=== PATIENT | male | born 1960 | race Caucasian/White ===

== ENCOUNTER 2022-12-17 01:27 | Day surgery (SDC) | payer BC, SELFPAY ==
[2022-12-08 14:08] VITALS: BMI 33.2
--- NOTE | 2022-12-16 22:37 | PM.HPGS ---
History of Present Illness History of Present Illness Consent: Risks, benefits, and alternatives have been discussed and questions answered. Patient agrees to proceed with procedure. Chief complaint: hx colon polyps Narrative: Asif Olmos is a 62 year old male was referred for colon cancer screening. At some point in the past he has had polyps removed. His last colonoscopy was in 2018. Review of Systems Review of Systems: All systems reviewed & are unremarkable except as noted in HPI and below PMFSH Social History Social History Alcohol intake: current Substance use type: does not use Living arrangements: with family Spiritual care concerns: No Meds Home Medications and Allergies Home Medications Medication Instructions Recorded Confirmed Type atorvastatin 40 mg tablet 40 mg PO DAILY 12/08/22 12/17/22 History Allergies Allergy/AdvReac Type Severity Reaction Status Date / Time tetracycline Allergy Unknown Unknown Verified 12/17/22 09:12 Exam Resp: Auscultation: clear to auscultation bilaterally Cardio: Rate: regular rate Rhythm: regular rhythm GI: GI Palp: Yes Soft to palpation and No Tenderness to palpation present (GI) Assessment and Plan Assessment and plan (1) Colon cancer screening: Code(s): Z12.11 - Encounter for screening for malignant neoplasm of colon Status: Acute Assessment and Plan: Colonoscopy with possible biopsy or polypectomy or cautery or injection of substances.
[2022-12-17 09:14] VITALS: BP 160/89; PULSE 71; RESP 18; TEMP 36.4; O2SAT 97; BMI 32.5
[2022-12-17] MEDS: LACTATED RINGERS 1,000 ML 150 ML IV CONT (09:31)
--- NOTE | 2022-12-17 10:11 | P.PNAN_ITS ---
Anes - Initial Pre Proc Eval Procedure: Operation Date: 12/17/22 10:15 Proposed Procedures p Colonoscopy - Alfredo Ross MD Date/Time: 12/17/22 10:11 Surgeon: Alfredo Ross MD Pre Op Diagnosis: hx colon polyps Patient Data Age: 62 Gender: M Height: 1.75 m Weight: 100.2 kg Last Vital Signs Temp 97.6 F 12/17/22 09:14 Pulse 71 12/17/22 09:14 Resp 18 12/17/22 09:14 BP 160/89 H 12/17/22 09:14 Pulse Ox 97 12/17/22 09:14 O2 Del Method Room Air 12/17/22 09:14 Allergies Allergy/AdvReac Type Severity Reaction Status Date / Time tetracycline Allergy Unknown Unknown Verified 12/17/22 09:12 Home Medications Medication Instructions Recorded Confirmed Type atorvastatin 40 mg tablet 40 mg PO DAILY 12/08/22 12/17/22 History Patient hx anesthesia problems: none Family hx anesthesia problems: none Results Review: All pre-operative results and documents have been reviewed as part of the pre- operative evaluation. [facility] Social History Social History Alcohol intake: current Substance use type: does not use Living arrangements: with family Spiritual care concerns: No Anes - Eval Final PreProcedure Day of Procedure 12/17/22 10:11 Patient weight: obese Heart: regular rate and rhythm Lungs: clear to auscultation Airway: Mallampati scale class II Neurological: alert and oriented Last oral intake: >/= 8 hours ASA classification: II Emergent: no Anesthetic plan: proceed Anesthesia type and monitoring: general GIVS and standard monitoring Results Review: All pre-operative results and documents have been reviewed as part of the pre- operative evaluation. Informed Consent: The patient's anesthetic plan and its attendant risks and benefits were discussed with the patient/family/POA. Questions were solicited and answers provided to the satisfaction of the patient/family/POA.
[2022-12-17] MEDS: SIMETHICONE ORAL SUSPENSION 20 MG/0.3 ML 30 ML BOTTLE 0.6 ML IRRIGATION (10:52)
[2022-12-17 11:00] VITALS: BP 112/63; PULSE 55; RESP 17; O2SAT 94
[2022-12-17 11:10] VITALS: BP 111/68; PULSE 55; RESP 17; O2SAT 94
[2022-12-17 11:20] VITALS: BP 131/84; PULSE 58; RESP 25; O2SAT 97
== END 2022-12-17 11:28 | disposition home or self-care (01) ==
PROVIDERS: PCP Internal Medicine; Visit Provider Internal Medicine Gastroenterology
PROC: 0DJD8ZZ Inspection of Lower Intestinal Tract, Via Natural or Artificial Opening Endoscopic (ICD-10-PCS; CPT 45378; principal; 2022-12-17 10:15)
DX: Z12.11 Encounter for screening for malignant neoplasm of colon (principal); K57.30 Diverticulosis of large intestine without perforation or abscess without bleeding; Z86.010 Personal history of colon polyps; E66.9 Obesity, unspecified; Z68.32 Body mass index [BMI] 32.0-32.9, adult
CPT/HCPCS: 45378; J2704; J7120

== ENCOUNTER 2024-11-30 07:45 | Outpatient (CLI) | payer MEDICARE, SELFPAY ==
--- NOTE | ~2024-11-30 | US_ITS ---
EXAMINATION: US aorta [facility] DATE: 11/30/2024 8:55 CDT INDICATION: Screening for abdominal aortic aneurysm TECHNIQUE: Grayscale, color Doppler, and pulsed Doppler images of the aorta and common iliac arteries were obtained. COMPARISON: None. FINDINGS: The proximal aorta measures 2.9 cm greatest sagittal dimension. The mid aorta measures 2.5 cm greates t sagittal dimension. The distal aorta measures 2.3 cm greatest sagittal dimension. The right common internal iliac artery measures 1.5 cm. The left common iliac artery measures 1.8 cm. IMPRESSION: 1. Mild atherosclerotic changes without evidence for aneurysm. Reviewed, dictated and finalized at location A.
--- OUTSIDE RECORDS SUMMARY | 2024-11-30 07:50 | XMS_ITS | CONTINUITY OF CARE DOCUMENT ---
Author Name sulaiman hilario Address Unknown Organization [facility] Address [address] [place] [address] Phone [phone] Care Team Providers [employer] Name Role Phone sulaiman hilario Unavailable Unavailable RESULTS Date Observation Value Provider Reference Range Interpretation Location alanine aminotransferase (SGPT), serum 27 1/L Karlee Lozano RN aspartate aminotransferase (SGOT), serum 19 1/L Karlee Lozano RN creatinine, serum 1.3 mg/dL Karlee Lozano RN urea nitrogen, blood 11 mg/dL Karlee Lozano RN potassium, serum 4.6 mmol/L Karlee Loznao RN sodium, serum 140 mmol/L Karlee Lozano RN alanine aminotransferase (SGPT), serum 27 1/L Karlee Lozano RN aspartate aminotransferase (SGOT), serum 19 1/L Karlee Lozano RN creatinine, serum 1.3 mg/dL Karlee Lozano RN urea nitrogen, blood 11 mg/dL Karlee Lozano RN potassium, serum 4.6 mmol/L Karlee Lozano RN sodium, serum 140 mmol/L Karlee Lozano RN
--- OUTSIDE RECORDS SUMMARY | 2024-11-30 07:50 | XMS_ITS | Data Portability ---
Author Organization [place] [facility] [employer], Main Office Address [address] [place] [address] Assessment No assessment recorded. Plan of Treatment Reminders Order Date Submit Date Provider Last Modified By Organization Details Last Modified Time Details Appointments None recorded. Lab PSA, serum or plasma 2024 025 [facility], [address], [place], [address], 5 14:07:27 CBC w/ auto diff 2024 025 [id number] [facility], [address], [place], [address], 5 14:07:26 CMP, serum or plasma 2024 025 [email or web address] [facility], [address], [place], [address], 5 14:07:26 lipid panel, serum 2024 025 [email or web address] [facility], [place], [address], 5 14:07:27 TSH, serum or plasma 2024 025 [email or web address] [facility], [address], [place], [address], 5 14:07:27 lipid panel, serum 2023 024 [email or web address] Edsby [facility], [address], [place], [address], 4 09:59:48 lipid panel, serum 2022 023 [id number] [facility], [address], [place], [address], 16:32:01 CMP, serum or plasma 2022 023 [id number] [facility], [address], [place], [address], 16:32:01 PSA, serum or plasma 2022 023 [email or web address] [facility], [address], [place], [address], 16:32:01 Referral None recorded. Procedures None recorded. Surgeries None recorded. Imaging None recorded. Medication Orders baclofen 10 mg tablet 2022 023 [email or web address] [facility] [address], [address], [place], [address], 11:09:40 methylpredn isolone 4 mg tablets in a dose pack 2022 023 [email or web address] [facility] [address], [address], [place], [address], 11:09:43 Patient TargetsNo targets recorded. Patient Instructions Encounter Date Encounter Id Patient Instructions Last Modified By Organization Details Last Modified Time 12/02/2022 [id number] Lower thoracic upper lumbar back pain thought to be musculoskeletal. Will give a trial of a Medrol Dosepak along with some baclofen and see if any improvement. If none may need consider further diagnostic evaluation including possible MRI of the lumbar spine. Do not think a standard x-ray at this time would be of much benefit and at patient's age would demonstrate some degenerative changes. [email or web address] Not available 12/02/2022 10:39:22 04/21/2023 [id number] Follow-up essbhakti ial hypertension -hyperlipidemia -gout -obesity class one all clinically stable. Getting by with his salt reduction as well as changes in body habitus and doing well. No interval complaints of any new cardiovascular symptoms or other associated symptoms. Has had a colonoscopy just done in November for follow-up of colon polyps which was fine. Recent blood work back in October showed a cholesterol 177 HDL 40 and LDL 105. Will check blood work consisting of CMP, lipid, PSA. Overall is doing quite well. Follow-up in six months. Standard immunizations of RSV, COVID, influenza and shingles as recommended. Portions of the record may have been created with voice recognition software. Occasional wrong-word or s ound-a-like substitutions may have occurred due to the inherent limitations of voice recognition software. Read the chart carefully and recognize, using context, where substitutions have occurred. Do blood work after May 06 because of insurance reasons Next Appt: 6 Months Approximate Date: 10/18/2023 [email or web address] Not available 04/21/2023 11:26:38 10/27/2023 [id number] risk assessment* [email or web address] Not availabl e 10/27/2023 15:12:56 INFLUENZA VACCIN E Recommended today, but patient declined Ordered Pa idaliant will get at local pharmacy/health department Patient has egg allergy Next vaccination to be given fall Next vaccination to be given fall _2023__ TD/TDAP Patient will get at local pharmacy/health department PNEUMONIA VACCINE Recommended at age 64 SHINGLES Patient will get at local pharmacy/health department PSA No screening necessary patient is up to date COLORECTAL SCREENING No screening necessary patient is up to date DEPRESSION SCREENING Negative BMI Overweight try to lose 10% of your body weight NUTRITION Heart Healthy Diet Recommendation of a 1500 caloric intake for weight loss is advised Diabetic Diet Renal Diet DASH Diet Continue healthy eating & exercise Eat Heart Healthy Diet PHYSICAL ACTIVITY Need more exercise/physical activity ALCOHOL USE Occasional/Social Use TOBACCO USE non smoker LUNG CANCER SCREENING Non Smoker-not indicated SEXUALLY ACTIVE HEPATITIS C SCREENING Not indicated GLUCOSE SCREENING Ordered Not needed Known Diabetic up to date LIPID SCREENING Ordered Not needed Diagnosis of Hyperlipidemia up to date [email or web address] Not available 10/27/2023 14:53:12 Wellness evaluat ion risk assessment stable. Follow-up for essential hypertension, GERD, hyperlipidemia and obesity class one. Had recent blood work performed. Will check a lipid panel since he is on the atorvastatin. Otherwise appears to be doing well otherwise. Continue on current Rx and follow-up in six months. FDA recommendations of a influenza, RSV, COVID, pneumococcal immunizations strongly advised. Next Appointment: 6 Months Approximate Date: 04/24/2024 Portions of the record may have been created with voice recognition software. Occasional wrong-word or s ound-a-like substitutions may have occurred due to the inherent limitations of voice recognition software. Read the chart carefully and recognize, using context, where substitutions have occurred. Not available 10/27/2023 15:12:30 05/03/2024 [id number] Follow-up borderline hypertension, hyperlipidemia and obesity class two all clinically stable. Will continue on current medications at this time. Recheck back in six months. At that time will need additional blood work and repeats on his lipid panel is etc.. Continue on current medications and follow-up in six months Follow Up: 6 Months Approximate Date: 10/30/2024 Portions of the record may have been created with voice recognition software. Occasional wrong-word or s ound-a-like substitutions may have occurred due to the inherent limitations of voice recognition software. Read the chart carefully and recognize, using context, where substitutions have occurred. [email or web address] Not available 05/03/2024 14:53:05 11/09/2024 [id number] Welcome to Medic are evaluation doing well. Follow-up for essential hypertension, hyperlipidemia clinically stable. Will check blood work consisting of CBC, CMP, lipid, thyroid and PSA. Also needs a ultrasound of the abdominal aorta. An EKG performed in the office demonstrated some slight left axis deviation but otherwise was normal. Will continue on current medications and follow-up in six months Additional Orders - Directives - Recommendations 1. Needs an ultrasound of the abdominal aorta for screening for abdominal aortic aneurysm for a welcome to Medicare visit Follow Up: 6 Months Approximate Date: 05/08/2025 Portions of record are template driven. When necessary additional context will be provided. Additionally some portions have been created with voice recognition software. Occasional wrong-word or s ound-a-like substitutions may have occurred due to the inherent limitations of voice recognition software. Read the chart carefully and recognize, using context, where substitutions may have occurred. Created: Ernie Monzon M.D. 05.14.2025 01:58 PM [email or web address] Not available 11/09/2024 14:58:25 Reason for Referral None Reported. Results Created Date Observation Date Name Description Value Unit Range Abnormal Flag Note LastModifiedBy Organization Detail LastModifiedTime 11/04/1911/04/2022 LIPID PANEL , STAND TITO cholesterol, total 177 mg/dL <200 normal Not Available [facility] [address] [address] [place], [address], 11/04/2022 07:34:30 11/04/1911/04/2022 LIPID PANEL , STAND TITO HDL cholesterol 40 mg/dL > or = 40 normal Not Available [facility] [address] [place], [address], 11/04/2022 07:34:30 11/04/19 23 11/04/2022 LIPID PANEL , STAND TITO triglyceride s 198 mg/dL <150 high Not Available [facility] [address] [place], [address], 11/04/2022 07:34:30 11/04/1911/04/2022 LIPID PANEL , STAND TITO LDL-choleste rol 105 mg/dL _(stepan c) high Refer ence range : <100 Selina able range <100 mg/dL for prima ry preve ntion ; <70 mg/dL for patie nts with CHD or diabe tic patie nts with > or = 2 CHD risk facto rs. LDL-C is now calcu lated using the Lexi n-Hop kins calcu joanie n, which is a valid ated novel metho d provi ding ramiro r accur acy than the Fried sofi equat ion in the estim ation of LDL-C . Lexi powers SS et al. MOUNA. 2013; 310(1 9): 2061- 2068 (http ://ed ucati on.Qu Helen teagueInotec AMD. com/f aq/FA Q164) Not Available [facility] [address] [place], [address], 11/04/2022 07:34:30 11/04/19 23 11/04/2022 LIPID PANEL , STAND TITO chol/HDLC ratio 4.4 (calc ) <5.0 normal Not Available [address], [address], 11/04/2022 07:34:30 11/04/19 23 11/04/2022 LIPID PANEL , STAND TITO non HDL cholesterol 137 mg/dL _(stepan c) <130 high For patie nts with diabe jeff plus 1 major ASCVD risk facto r, treat ing to a non-H DL-C goal of <100 mg/dL (LDL- C of <70 mg/dL ) is jodie ko n. Not Available [address] [address] [place], [address], 11/04/2022 07:34:30 05/11/20 23 05/13/2023 LIPID PANEL , STAND TITO cholesterol, total 188 mg/dL <200 normal Not Available [address] [address] [place], [address], 05/13/2023 18:35:08 05/11/20 23 05/13/2023 LIPID PANEL , STAND TITO HDL cholesterol 44 mg/dL > or = 40 normal Not Available [address] [address] [place], [address], 05/13/2023 18:35:08 05/11/20 23 05/13/2023 LIPID PANEL , STAND TITO triglyceride s 198 mg/dL <150 high Not Available [address] [address] [place], [address], 05/13/2023 18:35:08 05/11/20 23 05/13/2023 LIPID PANEL , STAND TITO LDL-choleste rol 112 mg/dL _(stepan c) high Refer ence range : <100 Selina able range <100 mg/dL for prima ry preve ntion ; <70 mg/dL for patie nts with CHD or diabe tic patie nts with > or = 2 CHD risk facto rs. LDL-C is now calcu lated using the [facility] kins erika guadarramajorge n, which is a valid ated novel marah lamar than the Fried sofi andujar ion in the estim ation of LDL-C . Lexi powers SS et al. MOUNA. 2013; 310(1 9): 2061- 2068 (http ://ed ucati on.Qu estDi zahidaTellyos. com/f aq/FA Q164) Not Available [facility] [address] [place], [address], 05/13/2023 18:35:08 05/11/2005/13/2023 LIPID PANEL , STAND TITO chol/HDLC ratio 4.3 (calc ) <5.0 normal Not Available [facility] [address] [address] [place], [address], 05/13/2023 18:35:08 05/11/20 23 05/13/2023 LIPID PANEL , STAND TITO non HDL cholesterol 144 mg/dL _(stepan c) <130 high For patie nts with diabe jeff plus 1 major ASCVD risk facto r, treat ing to a non-H DL-C goal of <100 mg/dL (LDL- C of <70 mg/dL ) is consi dered a thera peuti c optio n. Not Available [facility] [address] [address] , [place], [address], 05/13/2023 18:35:08 05/11/2005/13/2023 COMPR EHENS JOYCE METAB OLIC PANEL , PLASM A glucose 116 mg/dL 65-99 high Fasti ng refer ence inter jacki For someo ne witho ut known diabe jeff, a gluco se value betwe en 100 and 125 mg/dL is consi stent with predi abete s and shoul d be confi rmed with a follo w-up test. Not Available [facility] [address] [place], [address], 05/13/2023 18:35:09 05/11/20 23 05/13/2023 COMPR EHENS JOYCE METAB OLIC PANEL , PLASM A urea nitrogen (BUN) 16 mg/dL 7-25 normal Not Available [address], [address], 05/13/2023 18:35:09 05/11/20 23 05/13/2023 COMPR EHENS JOYCE METAB OLIC PANEL , PLASM A creatinine 1.21 mg/dL 0.70-1 .35 normal Not Available [address], [address], 05/13/2023 18:35:09 05/11/20 23 05/13/2023 COMPR EHENS JOYCE METAB OLIC PANEL , PLASM A eGFR 67 mL/mi n/1.7 3m2 > or = 60 normal Not Available [address], [address], 05/13/2023 18:35:09 05/11/20 23 05/13/2023 COMPR EHENS JOYCE METAB OLIC PANEL , PLASM A BUN/creatini ne ratio SEE NOTE: (calc ) 6-22 Not Repor julio cesar: BUN and Creat inine are withi n refer ence range . Not Available [address], [address], 05/13/2023 18:35:09 05/11/20 23 05/13/2023 COMPR EHENS JOYCE METAB OLIC PANEL , PLASM A sodium 139 mmol/ L 135-14 6 normal Not Available [facility] [address], [address], 05/13/2023 18:35:09 05/11/20 23 05/13/2023 COMPR EHENS JOYCE METAB OLIC PANEL , PLASM A potassium 4.3 mmol/ L 3.4-4. 8 normal Not Available [facility] [address], [address], 05/13/2023 18:35:09 05/11/20 23 05/13/2023 COMPR EHENS JOYCE METAB OLIC PANEL , PLASM A chloride 105 mmol/ L 98-110 normal Not Available [address], [address], 05/13/2023 18:35:09 05/11/20 23 05/13/2023 COMPR EHENS JOYCE METAB OLIC PANEL , PLASM A carbon dioxide 21 mmol/ L 20-32 normal Not Available [address], [address], 05/13/2023 18:35:09 05/11/20 23 05/13/2023 COMPR EHENS JOYCE METAB OLIC PANEL , PLASM A calcium 9.0 mg/dL 8.6-10 .3 normal Not Available [address], [address], 05/13/2023 18:35:09 05/11/20 23 05/13/2023 COMPR EHENS JOYCE METAB OLIC PANEL , PLASM A protein, total 6.9 g/dL 6.4-8. 4 normal Not Available [address], [address], 05/13/2023 18:35:09 05/11/20 23 05/13/2023 COMPR EHENS JOYCE METAB OLIC PANEL , PLASM A albumin 4.2 g/dL 3.6-5. 1 normal Not Available [address], [address], 05/13/2023 18:35:09 05/11/20 23 05/13/2023 COMPR EHENS JOYCE METAB OLIC PANEL , PLASM A globulin 2.7 g/dL_ (calc ) 2.2-4. 0 normal Not Available [address], [address], 05/13/2023 18:35:09 05/11/20 23 05/13/2023 COMPR EHENS JOYCE METAB OLIC PANEL , PLASM A albumin/glob ulin ratio 1.6 (calc ) 0.9-2. 3 normal Not Available [address], [address], 05/13/2023 18:35:09 05/11/20 23 05/13/2023 COMPR EHENS JOYCE METAB OLIC PANEL , PLASM A bilirubin, total 1.0 mg/dL 0.2-1. 2 normal Not Available [address], [address], 05/13/2023 18:35:09 05/11/20 23 05/13/2023 COMPR EHENS JOYCE METAB OLIC PANEL , PLASM A alkaline phosphatase 91 U/L 35-144 normal Not Available [address], [address], 05/13/2023 18:35:09 05/11/20 23 05/13/2023 COMPR EHENS JOYCE METAB OLIC PANEL , PLASM A AST 20 U/L 10-35 normal Not Available [address], [address], 05/13/2023 18:35:09 05/11/20 23 05/13/2023 COMPR EHENS JOYCE METAB OLIC PANEL , PLASM A ALT 20 U/L 9-46 normal Not Available [address], [address], 05/13/2023 18:35:09 05/11/20 23 05/13/2023 PSA, POST- PROST ATECT ALICIA PSA, icma 0.89 NG/mL REFER ENCE RANGE S for PSA: LESS THAN 0.10 ng/mL AFTER RADIC AL PROST ATECT ALICIA. 4.0 ng/mL OR LESS IN HEALT HY MALES WITHO UT PROST ATECT ALICIA. PSA value s obtai gilma with diffe rent assay metho ds or kits canno t be used inter block eably . This test was perfo rmed using the Beck an Coult er DxI metho d. PSA, ICMA is not to be used as a diagn ostic proce dure witho ut confi rmati on of the diagn osis by anoth er estab lishe d produ ct or proce dure. The lower limit of accur ate quant ifica tion for this assay is 0.02 ng/mL . PSA value s less than 0.02 ng/mL canno t be accur ately measu red and will be repor julio cesar as less than 0.02 ng/mL . Speci mens with PSA level s below the lower limit of accur ate quant ifica tion shoul d be consi dered as negat joyce. In patie nts with a negat joyce resul t for post prost atect alicia PSA, seria l monit oring of PSA level s at regul ar inter vals, along with physi stepan exami natio ns and other tests , may help to detec t recur rent prost ate cance r. Not Available [facility] [address] [place], [address], 05/13/2023 18:35:11 05/27/20 23 05/28/2023 HEMOG LOBIN A1C hemoglobin A1C 5.4 %_of_ total _HGB <5.7 normal For the purpo se of scree aubrey for the prese nce of diabe jeff: <5.7% Consi stent with the absen ce of diabe jeff 5.7-6 .4% Consi stent with incre ased risk for diabe jeff (pred iabet es) > or =6.5% Consi stent with diabe jeff This assay resul t is consi stent with a decre ased risk of diabe jeff. Curre ntly, no conse nsus exist ana maría lal use of hemog lobin A1c for diagn osis of diabe jeff in child mannie. Accor ding to Ameri can Diabe jeff Assoc iatio n (ADA) guide lines , hemog lobin A1c <7.0% repre sents optim al contr ol in non-p regna nt diabe tic patie nts. Diffe rent metri cs may apply to speci fic patie nt popul ation s. Stand ards of Medic al Care in Diabe jeff(A DA). Not Available [facility] [address] [address] [place], [address], 05/28/2023 01:17:15 12/21/19 24 12/22/2023 LIPID PANEL , STAND TITO cholesterol, total 196 mg/dL <200 normal Not Available [facility] [address] [address] [place], [address], 12/22/2023 07:57:09 12/21/19 24 12/22/2023 LIPID PANEL , STAND TITO HDL cholesterol 41 mg/dL > or = 40 normal Not Available [facility] [address] [address] [place], [address], 12/22/2023 07:57:09 12/21/1912/22/2023 LIPID PANEL , STAND TITO triglyceride s 235 mg/dL <150 high If a non-f astin g speci men was colle cted, consi jose alfredo repea t trigl yceri de testi ng on a fasti ng speci men if clini eduin indic ated. Mark real et al. J. of Clin. Lipid ol. 2015; 9:129 -169. Not Available [facility] [address] [address] [place], [address], 12/22/2023 07:57:09 12/21/1912/22/2023 LIPID PANEL , STAND TITO LDL-choleste rol 119 mg/dL _(stepan c) high Refer ence range : <100 Selina able range <100 mg/dL for prima ry preve ntion ; <70 mg/dL for patie nts with CHD or diabe tic patie nts with > or = 2 CHD risk facto rs. LDL-C is now calcu lated using the Lexi n-Hop kins calcu latio n, which is a valid ated novel metho d provi ding ramiro r accur acy than the Fried sofi equat ion in the estim ation of LDL-C . Lexi powers SS et al. MOUNA. 2013; 310(1 9): 2061- 2068 (http ://ed ucati on.Qu Helen teagueTellyos. com/f aq/FA Q164) Not Available [facility] [address] [address], [place], [address], 12/22/2023 07:57:09 12/21/19 24 12/22/2023 LIPID PANEL , STAND TITO chol/HDLC ratio 4.8 (calc ) <5.0 normal Not Available [facility] [address] [address], [place], [address], 12/22/2023 07:57:09 12/21/19 24 12/22/2023 LIPID PANEL , STAND TITO non HDL cholesterol 155 mg/dL _(stepan c) <130 high For patie nts with diabe jeff plus 1 major ASCVD risk facto r, treat ing to a non-H DL-C goal of <100 mg/dL (LDL- C of <70 mg/dL ) is consi peyton a marcia pfeiffero n. Not Available [facility] [address] [address], [place], [address], 12/22/2023 07:57:09 Result Notes None recorded. Problems Name Problem SNOMED Code Status Onset Date Resolution Date Notes Provider Name and Address Organization Details Recorded Time Renewal of prescripti on Active 2021 Not Available [facility] 3 15:24:27 Rectal hemorrhage 04053305 Active Not Available [facility] 3 15:24:27 Acute sinusitis 35321232 Active 2022 Not Available [facility] 3 15:24:27 Gastroesop hageal reflux disease 349043144 Active Not Available [facility] 3 15:24:27 Pure hyperchole sterolemia 358919411 Active Not Available [facility] 3 15:24:27 Disorder of prostate 67294790 Active 2021 Not Available [facility] 3 15:24:27 History of polyp of colon 464598763 Active 2017 Not Available [facility] 3 15:24:28 Essential hypertensi on 26743456 Active 2016 Not Available [facility] 3 15:24:28 Gout 71570861 Active 2017 Not Available [facility] 3 15:24:28 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 [employer] [facility] 3 10:38:55 Blood glucose outside reference range 863915139 Active 2022 [place], [place] [employer] [facility] [employer] [facility] 3 15:46:43 Obese class II 5821696613700 05 Active 2023 Ernie Monzon MD [address], [address], [place], [address] , [employer] [facility] [employer] [facility] 4 14:52:59 Congestion of nasal sinus 57978126 Active 2024 Ernie Monzon MD [address], [place], [address] , [employer] [facility] [employer] [facility] 5 12:45:25 Problem Notes None recorded. Medical Equipment None Reported. Allergies Allergen ID Allergen Name Allergen Category Reaction Reaction Severity Criticality Documentation Date Start Date Code Code System Note Provider Name and Address Organization Details Recorded Time [address] Pravachol medicatio n myalgias (muscle pain) Not available Not available 08/27/2022 3 RxNorm Not Available [facility] 3 15:28:06 Medications Name Sig Start Date Stop Date Status Note LastModified by Organization Details LastModified Time amoxicillin 500 mg capsule TAKE 1 CAPSULE BY MOUTH THREE TIMES DAILY 05/03 completed Not Available Not Available Not Available atorvastati n 40 mg tablet TAKE 1 TABLET BY MOUTH EVERY DAY active Not Available Not Available No t Available doxycycline hyclate 100 mg capsule TAKE 1 CAPSULE BY MOUTH TWICE A DAY 11/09 completed Not Available Not Available Not Available azithromyci n 250 mg tablet TAKE 2 TABLETS BY MOUTH TODAY, THEN TAKE 1 TABLET DAILY FOR 4 DAYS DIRECTED 11/09 completed Not Available Not Available Not Available benzonatate 200 mg capsule TAKE 1 CAPSULE BY MOUTH THREE TIMES A DAY 11/09 completed Not Available Not Available Not Available hydrocodone 5 mg-acetamin ophen 325 mg tablet TAKE 1 TABLET BY MOUTH EVERY 6 HOURS NEEDED 05/03 completed Not Available Not Available Not Available Keflex 500 mg capsule Take 1 capsule 4 times a day by oral route. 10/07 completed Not Available Not Available Not Available aspirin 81 mg tablet,angy yed release Take 1 tablet every day by oral route. 04/08 completed Not Available Not Available Not Available Tessalon Perles 100 mg capsule Take 1 capsule 3 times a day by oral route. 09/29 completed Not Available Not Available Not Available baclofen 10 mg tablet TAKE 1 TABLET BY MOUTH THREE TIMES DAILY 04/21 completed Not Available Not Available Not Available methylpredn isolone 4 mg tablets in a dose pack USE DIRECTED 04/21 completed Not Available Not Available Not Available fluticasone propionate 50 mcg/actuati on nasal spray,suspe nsion 04/08 completed Not Available Not Available Not Available loratadine 10 mg tablet TAKE 1 TABLET BY MOUTH EVERY DAY 04/08 completed Not Available Not Available Not Available amoxicillin 875 mg-uyenu m clavulanate 125 mg tablet Take 1 tablet every 12 hours by oral route. 2024 active Not Available Not Available Not Avai lable Cialis 20 mg tablet Take 1 tablet every day by oral route. 10/03 completed Not Available Not Available Not Available sildenafil (pulmonary hypertensio n) 20 mg tablet TAKE 3-5 TABLETS BY MOUTH ONE HOUR BEFORE SEXUAL ENCOUNTER active Not Available Not Available No t Available Vitals Date Recorded Body height Body mass index (BMI) Body weight Heart rate Body temperature Oxygen saturation Oxygen saturation in Arterial blood by Pulse oximetry Systolic blood pressure Diastolic blood pressure Provider Name and Address Organization Details Last Updated DateTime 4 177.8 cm 33.7 kg/m2 243270. 21 g 65 /min 97.2 [degF] 95 % 95 % 138 mm[Hg] 80 mm[Hg] CARMITA HurtBassem [facility] [employer] [facility] 4 14:47:35 Date Recorded Body height Body mass index (BMI) Body weight Heart rate Body temperature Oxygen saturation Oxygen saturation in Arterial blood by Pulse oximetry Systolic blood pressure Diastolic blood pressure Provider Name and Address Organization Details Last Updated DateTime 5 175.26 cm 35.2 kg/m2 085025. 78 g 70 /min 97 [degF] 97 % 97 % 134 mm[Hg] 72 mm[Hg] Marbella Ray [facility] [employer] [facility] 5 14:45:41 Date Recorded Body height Body mass index (BMI) Body weight Heart rate Body temperature Oxygen saturation Oxygen saturation in Arterial blood by Pulse oximetry Systolic blood pressure Diastolic blood pressure Provider Name and Address Organization Details Last Updated DateTime 3 177.8 cm 32.7 kg/m2 732557. 06 g 75 /min 97 [degF] 98 % 98 % 120 mm[Hg] 78 mm[Hg] Marbella Ray [facility] [employer] [facility] 3 10:29:59 Date Recorded Body height Body mass index (BMI) Body weight Heart rate Body temperature Oxygen saturation Oxygen saturation in Arterial blood by Pulse oximetry Systolic blood pressure Diastolic blood pressure Provider Name and Address Organization Details Last Updated DateTime 3 177.8 cm 32.6 kg/m2 186959. 47 g 74 /min 97 [degF] 98 % 98 % 138 mm[Hg] 80 mm[Hg] Marbella Ray [facility] [employer] [facility] 3 11:09:29 Date Recorded Body height Body mass index (BMI) Body weight Heart rate Body temperature Oxygen saturation Oxygen saturation in Arterial blood by Pulse oximetry Systolic blood pressure Diastolic blood pressure Provider Name and Address Organization Details Last Updated DateTime 4 177.8 cm 33.7 kg/m2 565523. 21 g 84 /min 97 [degF] 95 % 95 % 140 mm[Hg] 90 mm[Hg] Lorene Yeager CARMITABassem [facility] [employer] [facility] 4 14:26:15 Social History Question Answer Notes LastModified by Organizat ion Details LastModified Time In The 14 Days Before Symptom Onset, Have You Had Close Contact With A Laboratory-confirme d COVID-19 While That Case Was Ill? No [id number] Information not available 08/27/2022 In The 14 Days Before Symptom Onset, Have You Had Close Contact With A Person Who Is Under Investigation For COVID-19 While That Person Was Ill? No [id number] Information not available 08/27/2022 Have You Recently Traveled Abroad? No [id number] Information not available 08/27/2022 Sex: Unknown Functional Status None recorded. Mental Status None recorded. Family History Nothing Reported Notes:Patient Adopted with n o information on medical history. Medical History Condition Response NERVE DISEASE N BLINDNESS N RHEUMATIC FEVER N KIDNEY STONES N BLADDER PROBLEMS N MRSA N OTHER # 1 N POLIO N LUNG DISEASE/DISORDER N RADIATION / CHEMOTHERAPY N COPD N Other # 2 N BLOOD DISEASES N SURGERY N EAR OR HEARING PROBLEMS N MUMPS N DEPRESSION (INCLUDING POST ) N BOWEL PROBLEMS N STROKE/TIA N ULCERS N BENIGN PROSTATIC HYPERPLASIA N MEASLES N MYOCARDIAL INFARCTION N OBESITY N GERD/NAUSEA Y ANEURYSM N URINARY/BLADDER/KIDNEY PROBLEMS N CORONARY ARTERY DISEASE (CAD) N ADDICTION CONCERNS N Impotence Y ENDOMETRIOSIS N USE OF BLOOD THINNERS N SKIN PROBLEMS N GASTROINTESTINAL DISORDER Y PERIPHERAL VASCULAR DISEASE N MUSCLE,JOINT OR BONE PROBLEMS N GASTROINTESTINAL BLEEDING N BLOOD CLOTS N ASTHMA N CATARACTS N ERECTILE DYSFUNCTION N VARICOSITIES N GI PROBLEMS N Low Testosterone N INFERTILITY N AIDS/HIV N CHEMOTHERAPY / RADIATION N LIVER DISEASE N MALE HYPOGONADISM N HYPERTENSION Y Deficiency N ANXIETY DISORDER N BLOOD TRANSFUSION N ANEMIA/BLOOD DISORDER N CHRONIC EAR INFECTIONS N BRONCHITIS N TUBERCULOSIS N GLAUCOMA N FOOT PROBLEM N DIVERTICULITIS N SLEEP APNEA N CHICKENPOX N INFECTIOUS DISEASE N PROSTATE N HEART ARRHYTHMIA N INSOMNIA N HIGH CHOLESTEROL / HYPERLIPIDEMIA Y HYPERTHYROIDISM N EYE PROBLEMS N NEUROLOGICAL PROBLEMS N EDEMA N CHRONIC PAIN SYNDROME N HYPOTHYROIDISM N CONSTIPATION N CAROTID BLOCKAGE N BACK / NECK PROBLEMS N HAVE YOU BEEN HOSPITALIZED OR SEEN IN [facility] IN THE PAST YEAR ? N ATHEROSCLEROSIS N BREAST PROBLEMS N DIALYSIS N ECZEMA N OSTEOPOROSIS N ARTHRITIS N NO SIGNIFICANT PAST MEDICAL HISTORY N APPENDICITIS N DIABETES, TYPE N BAD TEETH N ENT N HEARTBURN / REFLUX N AFIB N AUTISM SPECTRUM DISORDER (ASD) N HEPATITIS / LIVER DISEASE N GOUT Y SLEEP DISORDER N ALZHEIMER'S DISEASE N Brain Problems N HERPES N DEMENTIA N SEIZURES/EPILEPSY N HEADACHES/MIGRAINES N VASCULAR DISEASE N PACEMAKER N Blood Disorder N DIZZINESS N KIDNEY DISEASE N HEART DISEASE/HEART PROBLEMS N MULTIPLE SCLEROSIS N CARDIAC ARRHYTHMIA N CANCER: SPECIFY Y Gall Stones N ATRIAL FIBRILLATION N PULMONARY EMBOLISM N AUTOIMMUNE DISEASE N Immunizations Vaccine Type Date Status Note Provider Nam e and Address Organization Details Recorded Time Influenza, split virus, quadrivalent, PF 3 completed Ernie Monzon MD [address] [facility], [address], [place], [address], [facility] [employer] 04/21/2023 11:21:31 Influenza, split virus, trivalent, preservative 3 completed Not Available [facility] 08/27/2022 15:27:55 COVID-19, mRNA, LNP-S, PF, 30 mcg/0.3 mL dose 2 completed Not Available [facility] 08/27/2022 15:27:55 Influenza, split virus, quadrivalent, PF 8 completed Not Available [facility] 08/27/2022 15:27:55 Influenza, split virus, quadrivalent, PF 7 completed Not Available [facility] 08/27/2022 15:27:55 Influenza, split virus, quadrivalent, preservative 5 completed Not Available [facility] 08/27/2022 15:27:55 Influenza, split virus, quadrivalent, PF 2 completed Not Available [facility] 08/27/2022 15:27:55 Influenza, split virus, quadrivalent, PF 1 completed Not Available [facility] 08/27/2022 15:27:55 Past Encounters Encounter ID Performer Location Encounter Start Date Encounter Closed Date Diagnosis/Indication Diagnosis SNOMED-CT Code Diagnosis ICD10 Code Diagnosis Note [id number] Ernie Monzon MD [facility] [place] [address] [place] [address] 10/09/2020 00:00:00 10/09/2020 14:46:33 [id number] Ernie Monzon MD [facility] [place] [address] [facility] [place] [place] [address] 04/09/2021 00:00:00 04/09/2021 14:48:16 [id number] Ernie Monzon MD [facility] Internal Med [place] [address] [facility] [address] , [place] [address] 10/08/2021 00:00:00 10/08/2021 14:40:14 [id number] Ernie Monzon MD [facility] Internal Med [place] [address] [facility] [address] , [place] [address] 04/08/2022 00:00:00 04/08/2022 14:57:12 [id number] Ernie Monzon MD [facility] Internal [facility] [place] [address] [place] [address] y , [place] [address] 10/21/2022 10:47:56 10/21/2022 11:35:13 Adult health examination 360590595 Z00.00 Depression screening 171 729532 Z13.31 Essential hypertension 95807632 I10 Pure hypercholesterolemia 870471018 E78.00 History of polyp of colon 191386222 Z86.010 Obese class I 2926682705 66795 E66.9 [id number] Ernie Monzon MD [facility] Internal [facility] [place] [address] [facility] [address] , [place] [address] 12/02/2022 10:29:20 12/02/2022 10:45:38 Low back strain 268356371 S39.012A [id number] Ernie Monzon MD [facility] Internal [facility] [place] [address] [place] [address] y , [place] [address] 04/21/2023 10:50:17 04/21/2023 11:30:27 Administration of influenza vaccine 15670181 Z23 Essential hypertension 22892875 I10 Gout 98266191 M10.9 Pure hypercholesterolemia 602618355 E78.00 Obese class I 2136162467 10244 E66.9 Disorder of prostate 302 64139 N42.9 [id number] Ernie Monzon MD [facility] Internal [facility] [place] [address] [facility] [address] , [place] [address] 10/27/2023 14:37:50 10/27/2023 15:16:11 Adult health examination 107592250 Z00.00 Depression screening 171 971946 Z13.31 Essential hypertension 88314060 I10 Gastroesop hageal reflux disease 648425158 K21.9 Pure hypercholesterolemia 701215913 E78.00 Obese class I 2232737719 78479 E66.9 [id number] Ernie Monzon MD [facility] [address] [place] [address] 05/03/2024 14:20:43 05/03/2024 14:57:15 Essential hypertension 24569813 I10 Pure hypercholesterolemia 446739194 E78.00 Obese class II 420191573 1 58325 E66.014 [id number] Ernie Monzon MD [facility] Internal Med [facility] [address] [facility] [address] [place] [address] 11/09/2024 14:44:20 11/14/2024 09:47:12 Essential hypertension 58830842 I10 General ex amination of patient 700671959 Z00.00 Pure hypercholesterolemia 515489821 E78.00 Disorder of prostate 302 07744 N42.9 Health Concerns Section Related Observation LastModified by Organization Detai ls LastModified Time None Recorded Concern Status LastModified by Organization Details LastModified Time None Recorded Advance Directives Directive None Recorded Payers Encounter Date Sequence Insurance Name Policy Number Policy Garcia Covered Member ID Garcia Member ID Guarantor Name 12/02/2022 1 [place] [id number] Renetta Olmos [id number] Asif Olmos 04/21/2023 1 [place] [id number] Renetta Olmos [id number] Asif Olmos 10/27/2023 1 [place] [id number] Renetta Olmos [id number] Asif Olmos 05/03/2024 1 [place] [id number] Renetta Olmos [id number] Asif Olmos 11/09/2024 1 [employer] (MEDICARE REPLACEMENT/ ADVANTAGE - PPO) [id number] Asif Olmos [id number] Asif Olmos Notes Date Note Type Note Provider Name and Address Organization Details Recorded Time 12/03/19 23 text/htm l Patient Name: Asif Cabello Of Service: Thursday ( 12.02.2022 ): 1960 Age: 62 There has been approximately a 3 lb weight gain since 10/21/2022. This represents approximately a 1.3% change in weight. Weight change attributable to lifestyle changes. Vital Signs:Blood Pressure: Sitting Rt. Arm 120/78Pulse: Sitting 75 /min and RegularRespirations: 12Height 70 in or 1.8 mWeight 228 lb or 103.4 kgBMI 32.7Temperature: 97 F or 36.1 CPulse Oximetry: 98 % at rest on no oxygen Chief Complaint: Addressed in HPI Problems or conditions discussed in the HPI were the only ones reviewed during the encounter.Only social and family history addressed in the HPI were reviewed during this encounter. Attendant(s): None Constitutional and Systemic Symptoms: none Medication Reconciliation: from medication list. History of Present Illness #1. Three week history of lower back discomfort predominantly in the area of the lower thoracic spine area. Pain aggravated by bending and stooping. Some radiation around to the lower abdomen. A six intermittent Aleve gets considerable relief with this. Denies any numbness, tingling weakness or other associated neuro sensory or motor deficits. There has been no incontinence of urine or stool. Cannot relate any specific injury or activity that initiated the pain. Tends wax and wane in severity. Nothing on physical examination to suggest any serious neurological abnormality.:Medication List Reviewed and Reconciled 12/02/2022Lipitor 40 MG (TABLET - ORAL) Once DailyCialis 20 MG One As DirectedADRs List Reviewed 12/02/2022ravachol MyalgiaVaccination and Htucatblsmte3690-27 Ifldoruot1095-52 Covid Booster Muswaj5073-00 Covid Fanoyc5415-46 Covid Zbodawm4088-99 ShingrixSurgical HistoryLt. Inguinal Hernia, Lt. Foot surgery, TonsillectomyPreventative Testing Confirmed by Our Oifnlem4505/06/2022 ALBUMIN 4.3 G/DL05/06/2022 PSA 0.90 NG/ML11/02/2017 COLONOSCOPY (5 YEARS) 11/02/2022Social HistoryDoes not smoke cigarettes. 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 Ernie Monzon MD [address] [facility], [place], [address], [place] [facility] [place] [employer] 12/02/2022 10:39:35 04/21/20 23 text/htm l Patient Name: Asif Cabello Of Service: Thursday ( 04.21.2023 ): 1960 Age: 62 There has been approximately a 1 lb weight loss since 12/02/2022. This represents approximately a .4% change in weight. Weight change attributable to lifestyle changes. Vital Signs:Blood Pressure: Sitting Rt. Arm 138/80Pulse: Sitting 74 /min and RegularRespiratory Rate: 12Height 70 in or 1.8 mWeight 227 lb or 103.0 kgBMI 32.6Temperature: 97 F or 36.1 CPulse Oximetry: 98 % at rest on no oxygen Chief Complaint: Addressed in HPI Problems or conditions discussed in the HPI were the only ones reviewed during the encounter.Only social and family history addressed in the HPI were reviewed during this encounter. Attendant(s): NoneConstitutional and Systemic Symptoms:none Medication Reconciliation: from medication list. Szpvfusnvwy55/21/2023: Colonoscopy demonstrated some diverticulosis of the sigmoid colon. No polyps were noted. Recommended follow-up in five years because of history. History of Present Illness #1. Essential Hypertension: Stage: Stage I Interval Neurological Complaints no headaches, dizziness, weakness, visual changes, ataxia, aphasia and apraxia. No shortness of breath, orthopnea or cardiovascular symptoms. No other symptoms related to end organ damage. Pressure has been under fair control. Currently normal. No other end organ symptoms or findings. Therapy reviewed regarding management of hypertension and includes salt restriction. #2. Type II Hypercholesterolaemia: Currently taking medication and tolerating well. No interval complaints of any muscle pain or arthralgia. No significant liver changes with medications. Last lipid panel: excellent control. Therapy reviewed regarding treatment of cholesterol management and include diet and Lipitor. #3. Gouty Arthritis: History of gouty arthritis. Has had no attacks since last examination. Currently taking NSAIDS. No interval complaints of any new joint involvement. #4. Hx of obesity. Currently Class 1 Obesity BMI 30-34.99. Has tried numerous dietary support and supplements with no benefit. Instructed on the health consequences of the obese status particularly cancer - diabetes and heart disease. Discussed new modalities of weight loss including GLP-1 medications that are used to treat diabetes. Potential candidate for bariatric surgery: No. Wishes to be evaluated by Dietary: No and was offered to be evaluated and instructed by technology lab teacher on weight loss diet.Medication List Reviewed and Reconciled 04/21/2023Lipitor 40 MG (TABLET - ORAL) Once DailyCialis 20 MG One As DirectedADRs List Reviewed 04/21/2023ravachol MyalgiaVaccination and Uytrimrzhkye8931-63 Janpfuqmf2439-76 Covid Booster Zxgowo8319-35 Covid Nsbvzz6232-01 ShingrixSurgical HistoryLt. Inguinal Hernia, Lt. Foot surgery, TonsillectomyPreventative Testing Confirmed by Our Jpwzgxx4512/17/2022 COLONOSCOPY ( 5 YEARS ) 811/01/2022 ALBUMIN 4.3 G/DL N107/06/2021 PSA 0.90 NG/ML NSocial HistoryDoes not smoke cigarettes. 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 Ernie Monzon MD [address] [facility], [place], [address], [facility] 04/21/2023 11:27:15 10/27/19 24 text/htm l Patient Name: Asif Cabello Of Service: Thursday ( 10.27.2023 ): 1960 Age: 63 There has been approximately a 8 lb weight gain since 04/21/2023. This represents approximately a 3.5% change in weight. Weight change attributable to lifestyle changes. Vital Signs:Blood Pressure: Sitting Rt. Arm 138/80Pulse: Sitting 65 /min and RegularRespiratory Rate: 12Height 69 in or 1.8 mWeight 235 lb or 106.6 kgBMI 34.7Temperature: 97.2 F or 36.2 CPulse Oximetry: 95 % at rest on no oxygen Chief Complaint: Addressed in HPI Problems or conditions discussed in the HPI were the only ones reviewed during the encounter.Only social and family history addressed in the HPI were reviewed during this encounter. Attendant(s): NoneConstitutional and Systemic Symptoms:none Medication Reconciliation: from medication list. Syohkroujez05/21/2023: Colonoscopy demonstrated some diverticulosis of the sigmoid colon. No polyps were noted. Recommended follow-up in five years because of history. History of Present Illness In for a well patient check up. Last well patient evaluation was approximately one year. No interval complaints of any new major medical problems. No hx of any chest pain, shortness of breath, nausea, vomiting, diarrhea or constitutional symptoms.PSA already performedColonoscopy or Cologuard: not dueImmunizations Up To Date or refuses to takeNo Significant Change In Family HxFall Risk normalDepression Score: 0Hearing normalVisual normalReviewed Smoking and Drug HistoryReviewed Immunization HistoryInstructed on importance of weight on diabetes, heart and other diseases aggravated by obesity.Instructed on importance of weight on diabetes, heart and other diseases aggravated by obesity. #1. Essential Hypertension: Stage: Stage I Interval Neurological Complaints no headaches, dizziness, weakness, visual changes, ataxia, aphasia and apraxia. No shortness of breath, orthopnea or cardiovascular symptoms. No other symptoms related to end organ damage. Pressure has been under excellent control. Currently normal. No other end organ symptoms or findings. Therapy reviewed regarding management of hypertension and includes salt restriction. #2. Type II Hypercholesterolaemia: Currently taking medication and tolerating well. No interval complaints of any muscle pain or arthralgia. No significant liver changes with medications. Last lipid panel: fair control. Therapy reviewed regarding treatment of cholesterol management and include diet and Lipitor. #3. Hx of esophageal reflux currently stable. Hx of Complications: none The severity, duration and intensity of symptoms have improved. Frequency: most meals Treatment consists medications taken on intermittent basis. Current therapy includes no medication. There has been no nausea, eructation, vomiting, hematemesis, dysphagia, velopharyngeal insufficiency and odynophagia. No change in he frequency or intensity of symptoms. Has had no melena. Has had no . Discussed use of H2 antagonists NA. #4. Hx of obesity. Currently Class 1 Obesity BMI 30-34.99. Has tried numerous dietary support and supplements with no benefit. Instructed on the health consequences of the obese status particularly cancer - diabetes and heart disease. Discussed new modalities of weight loss including GLP-1 medications that are used to treat diabetes. Potential candidate for bariatric surgery: No. Wishes to be evaluated by Dietary: No and was offered to be evaluated and instructed by technology lab teacher on weight loss diet. Active Medication ListLipitor 40 MG (TABLET - ORAL) Once DailyCialis 20 MG One As Directed Adverse Drug Reactions ReviewedPravachol Myalgia Vaccination and Zqbovdqpoqqp6599-38 Wlrxtisbc9641-97 Covid Booster Yjcqtt2251-18 Covid Qnbvrr1356-95 Shingrix Surgical Jmxhfvi1595-94 Lt. Inguinal Bidedw0415-81 Lt. Foot ortmigt4318-80 Tonsillectomy Preventative Vcwxoly1705/27/2023 HAIC 5.4 % OF TOTAL HGB N107/11/2022 ALBUMIN 4.2 G/DL N107/11/2022 PSA 0.89 NG/ML N012/17/2022 COLONOSCOPY ( 5 YEARS ) 12/18/2027 Social HistoryDoes not smoke cigarettes. 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 Ernie Monzon MD [address] [facility], [place], [address], [facility] [employer] 10/27/2023 15:12:59 05/03/20 24 text/htm l Patient Name: Asif Cabello Of Service: Thursday ( 05.03.2024 ): 1960 Age: 63 There has been approximately a 20 lb weight gain since 10/27/2023. This represents approximately a 8.5% change in weight. Weight change attributable to lifestyle changes. Vital Signs:Blood Pressure: Sitting Rt. Arm 140/90Pulse: Sitting 69 /min and RegularRespiratory Rate: 16Height 69 in or 1.8 mWeight 255 lb or 115.7 kgBMI 37.7Temperature: 97 F or 36.1 CPulse Oximetry: 95 % at rest on no oxygen Chief Complaint: Addressed in HPI Problems or conditions discussed in the HPI were the only ones reviewed during the encounter.Only social and family history addressed in the HPI were reviewed during this encounter. Attendant(s): NoneConstitutional and Systemic Symptoms:none Medication Reconciliation: from medication list. Cpgfkaoaolo02/21/2023: Colonoscopy demonstrated some diverticulosis of the sigmoid colon. No polyps were noted. Recommended follow-up in five years because of history. History of Present Illness #1. Essential Hypertension: Stage: Stage I Interval Neurological Complaints no headaches, dizziness, weakness, visual changes, ataxia, aphasia and apraxia. No shortness of breath, orthopnea or cardiovascular symptoms. No other symptoms related to end organ damage. Pressure has been under excellent control. Currently normal. No other end organ symptoms or findings. Therapy reviewed regarding management of hypertension and includes salt restriction. #2. Type II Hypercholesterolaemia: Currently taking medication and tolerating well. No interval complaints of any muscle pain or arthralgia. No significant liver changes with medications. Last lipid panel: fair control. Therapy reviewed regarding treatment of cholesterol management and include diet. #3. Hx of obesity. Currently Class 2 Obesity BMI 35-39.99. Has tried numerous dietary support and supplements with no benefit. Instructed on the health consequences of the obese status particularly cancer - diabetes and heart disease. Discussed other modalities of weight loss no . Potential candidate for bariatric surgery: No. Wishes to be evaluated by Dietary: No and was offered to be evaluated and instructed by technology lab teacher on weight loss diet. Active Medication ListLipitor 40 MG (TABLET - ORAL) Once DailyCialis 20 MG One As Directed Adverse Drug Reactions ReviewedPravachol Myalgia Vaccination and Immunization(X) 2022- INFLUENZA( ) 2020- SHINGRIX( ) 2020- COVID PFIZER(X) 2021-06 COVID BOOSTER PFIZER Surgical Yybuhql3510-04 Lt. Inguinal Yxhudc7485-99 Lt. Foot gwpemld8451-17 Tonsillectomy Preventative Testing( ) 05/27/2023 HAIC 5.4 % OF TOTAL HGB N( ) 05/11/2023 Albumin 4.2 G/DL N( ) 05/11/2023 PSA 0.89 NG/ML N 05/11/2024( ) 12/17/2022 Colonoscopy ( 5 Years ) 12/18/2027 Social HistoryDoes not smoke cigarettes. 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 TEST RESULT RANGE UNITSLIPID PANEL, STANDARD Date: 4CHOLESTEROL, TOTAL 196 <200 MG/DLHDL CHOLESTEROL 41 > OR = 40 MG/DLTRIGLYCERIDES 235 <150 MG/DLLDL-CHOLESTEROL 119 MG/DL (CALC)HEMOGLOBIN A1C Date: 05/27/2023HEMOGLOBIN A1C 5.4 <5.7 % OF TOTAL HGBCOMPREHENSIVE METABOLIC PANEL, PLASMA Date: 05/11/2023SODIUM 139 135-146 MMOL/LPOTASSIUM 4.3 3.4-4.8 MMOL/LGLUCOSE 116 65-99 MG/DLUREA NITROGEN (BUN) 16 7-25 MG/DLCREATININE 1.21 0.70-1.35 MG/DLEGFR 67 > OR = 60 ML/MIN/1.18Y7DVS, POST-PROSTATECTOMY Date: 3PSA, ICMA 0.89 NG/ML Ernie Monzon MD [address], [address], [facility] 05/03/2024 14:53:24 11/10/19 25 text/htm l Patient Name: Asif [place] Of Service: Thursday ( 11.09.2024 ): 1960 Age: 64 There has been approximately a 16.5 lb weight loss since 05/03/2024. This represents approximately a 6.5% change in weight. Weight change attributable to lifestyle changes. Vital Signs:Blood Pressure: Sitting Rt. Arm 134/72Pulse: Sitting 70 /min and RegularRespiratory Rate: 16Height 69 in or 1.8 mWeight 238.5 lb or 108.2 kgBMI 35.2 Chief Complaint: Addressed in HPI Problems or conditions discussed in the HPI were the only ones reviewed during the encounter.Only social and family history addressed in the HPI were reviewed during this encounter. Attendant(s): NoneConstitutional and Systemic Symptoms:none Medication Reconciliation: from medication list. Efxkovwazys87/21/2023: Colonoscopy demonstrated some diverticulosis of the sigmoid colon. No polyps were noted. Recommended follow-up in five years because of history. History of Present Illness Reviewed the findings of the preventative health visit. Addressed all areas with the patient, patient's family or caregivers. Preventative examinations and testing immunizations - vaccinations, PSA, DEXA Scan and AAA Screening all reviewed and ordered where patient was amenable to the recommendations. Cognitive function see HPI but demonstrated no overall change in cognitive status . Depression addressed and where necessary medications were adjusted or instituted. End of life and living will briefly discussed with patient and where these can be filled out and legally executed. Other blood and imaging studies were ordered if considered necessary. Other recommendations may be found in the encounter note. #1. Essential Hypertension: Stage: Stage I Interval Neurological Complaints no headaches, dizziness, weakness, visual changes, ataxia, aphasia and apraxia. No shortness of breath, orthopnea or cardiovascular symptoms. No other symptoms related to end organ damage. Pressure has been under fair control. Currently normal. No other end organ symptoms or findings. Therapy reviewed regarding management of hypertension and includes salt restriction and weight loss.Echocardiogram demonstrates slight left SX deviation with no other significant abnormalities. #2. Type II Hypercholesterolaemia: Currently taking medication and tolerating well. No interval complaints of any muscle pain or arthralgia. No significant liver changes with medications. Last lipid panel: fair control. Therapy reviewed regarding treatment of cholesterol management and include diet and Lipitor. #3. Hx of esophageal reflux currently stable. Hx of Complications: none The severity, duration and intensity of symptoms have improved. Frequency: most meals Treatment consists medications taken on intermittent basis. Current therapy includes no medication. There has been no nausea. No change in he frequency or intensity of symptoms. Has had no melena. Has had no . Discussed use of H2 antagonists NA. #4. Hx of obesity. Currently Class 2 Obesity BMI 35-39.99. Has tried numerous dietary support and supplements with no benefit. Instructed on the health consequences of the obese status particularly cancer - diabetes and heart disease. Discussed other modalities of weight loss no . Potential candidate for bariatric surgery: No. Wishes to be evaluated by Dietary: No and was offered to be evaluated and instructed by technology lab teacher on weight loss diet. Wellness Evaluation FAST Stage: 1 No functional decline Basic ADLS Ambulation Normal YesEating YesBed Transfer YesWalker NoCane NoFalls NoMultiple Falls NoBathing and Showering YesDressing YesFeeding YesFunctional Mobility YesPersonal Hygiene YesToilet Hygiene YesHome Safety Yes Instrumental ADLS House Work YesTaking Medications YesShopping YesTelephone YesUsing Technology YesTransportation YesPreparing Meals Yes Additional Topics Advanced Directives DiscussedLiving Will Discussed Mini Mental Status Exam Time Score: 5Location Score: 5Registration Score: 3Attention Score: 5Recall Score: 3Language Score: 2Repetition Score: 1Sentence Score: 1Reading Score: 1Pentagons Score: 0Command Score: 3 29 Normal Social and Physical Activities Drinking History: One Drink or Less per weekExercise 20 Minutes per Week: Yes, some of timeDifficulty Driving Car: NoSmoking History: NoOther Problems: None,Falling,Orthostatic,Trou ble Eating,Teeth Denture Problems,Problems using Telephone,Tiredness or fatigue No Living Will on File! Active Medication ListLipitor 40 MG (TABLET - ORAL) Once DailyCialis 20 MG One As Directed Adverse Drug Reactions ReviewedPravachol Myalgia Vaccination and ImmunizationImmunizations and Vaccinations Discussed and Implemented if feasible In the Office. Else referred to pharmacies. (X) 2023-03 INFLUENZA( ) 2020-07 SHINGRIX( ) 2020-09 COVID PFIZER(X) 2021-06 COVID BOOSTER PFIZER Surgical [id number] Lt. Inguinal [id number] Lt. Foot [id number] Tonsillectomy Preventative TestingPreventative Testing Discussed and Scheduled if Acceptable to Patient ( ) 05/27/2023 HAIC 5.4 % OF TOTAL HGB N( ) 05/11/2023 Albumin 4.2 G/DL N( ) 05/11/2023 PSA 0.89 NG/ML N 05/11/2025( ) 12/17/2022 Colonoscopy ( 5 Years ) 12/18/2027 Social HistoryDoes not smoke cigarettes. 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 TEST RESULT RANGE UNITSLIPID PANEL, STANDARD Date: 4CHOLESTEROL, TOTAL 196 <200 MG/DLHDL CHOLESTEROL 41 > OR = 40 MG/DLTRIGLYCERIDES 235 <150 MG/DLLDL-CHOLESTEROL 119 MG/DL (CALC)HEMOGLOBIN A1C Date: 05/27/2023HEMOGLOBIN A1C 5.4 <5.7 % OF TOTAL HGBCOMPREHENSIVE METABOLIC PANEL, PLASMA Date: 05/11/2023SODIUM 139 135-146 MMOL/LPOTASSIUM 4.3 3.4-4.8 MMOL/LGLUCOSE 116 65-99 MG/DLUREA NITROGEN (BUN) 16 7-25 MG/DLCREATININE 1.21 0.70-1.35 MG/DLEGFR 67 > OR = 60 ML/MIN/1.29A3BITBGMXSC, TOTAL 1.0 0.2-1.2 MG/DLALKALINE PHOSPHATASE 91 35-144 U/LAST 20 10-35 U/LALT 20 9-46 U/L Ernie Monzon MD [address] [facility], [place], [address], [place] [employer] 11/09/2024 14:58:58
== END 2024-11-30 07:46 | disposition home or self-care (01) ==
PROVIDERS: PCP Internal Medicine; Visit Provider Internal Medicine
DX: I70.0 Atherosclerosis of aorta (principal); Z13.6 Encounter for screening for cardiovascular disorders
CPT/HCPCS: 76706